=== PATIENT | male | born 1965 | race Caucasian/White ===

== ENCOUNTER 2017-04-02 08:16 | Emergency (ER) | payer MEDICARE, MEDICAID ==
--- NOTE | 2017-04-02 08:22 | UC ---
Back Pain HPI - HPI Summary HPI Summary: Pt presents with complaining of lower back pain R>L. He tells me that he has a history of lower back pain and is s/p lumbar fusion. 3 days ago he was lying down and twisted in a "weird" way - felt an immediate pull in his right lower back. The next day he was walking and slid on a patch of ice and further pulled this area in his lower back. Currently is experiencing pain in right lower back > left. He has no radiation of his pain, no numbness/tingling, no bowel/bladder dysfunction, no dysuria. He denies recent illness, SOB, chest pain , headache, fever, chills, abdominal pain, N/V/D/C. He does have a prescription for a muscle relaxer and percocet at home - he took the muscle relaxer with mild relief, but tells me he has not taken the percocet because he wanted to make sure "nothing was wrong with his back first". - History of Current Complaint Stated Complaint: BACK PAIN Time Seen by Provider: 04/02/17 08:22 Hx Obtained From: Patient Onset/Duration: Gradual Onset Timing: Constant Severity Initially: Moderate Severity Currently: Moderate Pain Intensity: 7 Pain Scale Used: 0-10 Numeric Character: Dull, Aching, Spasmodic, Stiffness Aggravating Factor(s): Movement, Lifting, Bending Alleviating Factor(s): Position - Allergies/Home Medications Allergies/Adverse Reactions: Allergies Allergy/AdvReac Type Severity Reaction Status Date / Time Iodide Allergy Severe Anaphylatic Verified 04/02/17 08:40 Shock Haloperidol [From Haldol] Allergy See Comment Verified 04/02/17 08:40 ENVIRONMENTAL Allergy Intermediate Difficulty Uncoded 04/02/17 08:40 Breathing/Wheezing INDUSTRIAL Allergy Intermediate Difficulty Uncoded 04/02/17 08:40 Breathing Home Medications: Home Medications Amlodipine Besylate [Norvasc 2.5 mg tab] 1 tab PO DAILY 04/02/17 [History Confirmed 04/02/17] Bisoprolol & Hydrochlorothiazi [Ziac 5-6.25 mg-] 1 tab PO DAILY 04/02/17 [ History Confirmed 04/02/17] Hydrochlorothiazide TAB* [Hydrodiuril TAB*] 1 tab PO DAILY 04/02/17 [History Confirmed 04/02/17] Losartan Potassium 1 tab PO DAILY 04/02/17 [History Confirmed 04/02/17] PMH/Surg Hx/FS Hx/Imm Hx - Additional Past Medical History Additional PMH: Chronic LBP hx of spinal fusion Endocrine History: Dyslipidemia Cardiovascular History: Cardiac Disease, Hypertension Psychological History: Anxiety, Depression - Surgical History Surgical History: Yes Surgery Procedure, Year, and Place: APPENDECTOMY. X4 CARDIAC STENTS. POSTERIOR CERVICAL FUSION. L5-S1 LAMINECTOMY - Family History Known Family History: Positive: Cardiac Disease, Hypertension - Social History Alcohol Use: Occasionally Substance Use Type: None Smoking Status (MU): Former Smoker Type: Cigarettes Have You Smoked in the Last Year: No When Did the Patient Quit Smoking/Using Tobacco: 8 years ago - Immunization History Most Recent Influenza Vaccination: never Most Recent Tetanus Shot: unknown Most Recent Pneumonia Vaccination: never Review of Systems Constitutional: Negative Skin: Negative Respiratory: Negative Cardiovascular: Negative Gastrointestinal: Negative Genitourinary: Negative Neurovascular: Negative Musculoskeletal: Decreased ROM - Lower back, Other: - LBP Neurological: Negative Psychological: Negative All Other Systems Reviewed And Are Negative: Yes Physical Exam Triage Information Reviewed: Yes Appearance: Well-Appearing, Well-Nourished, Obese Vital Signs Reviewed: Yes Neck: Positive: Supple, Nontender, No Lymphadenopathy Respiratory: Positive: Chest non-tender, Lungs clear, Normal breath sounds, No respiratory distress, No accessory muscle use Cardiovascular: Positive: RRR, No Murmur, Pulses Normal Abdomen Description: Positive: Nontender, No Organomegaly, Soft. Negative: Bruit, CVA Tenderness (R), CVA Tenderness (L), Distended, Guarding Musculoskeletal: Positive: Strength Intact - b/l LE., No Edema, ROM Limited @ - Spine due to pain with flexion/extension and rotation., Other: - SLR positive B/ L. Celestina positive b/l for lower back pain. TTP over right lumbar paraspinal muscles. FROM and 5/5 strength LEs including dorsiflexion and plantar flexion Neurological: Positive: Alert, Muscle Tone Normal, Other: - L3-S1 sensations intact b/l. Psychological: Positive: Age Appropriate Behavior Skin: Positive: Other - No rashes, lesions, or ecchymosis present. Back Pain Course/Dx - Course Course Of Treatment: Lumbar XR - IMPRESSION: STATUS POST POSTERIOR SPINAL FUSION AND LAMINECTOMY AT THE L5-S1 LEVEL. THERE IS A FRACTURE IN ONE OF THE PEDICLE SCREWS AT THE S1 LEVEL. THERE APPEARS TO BE FUSION OF. THE L5-S1 DISC. THE VERTEBRA ARE IN NORMAL ALIGNMENT. Pt was notified of the above and advised to follow up with his neurosurgeon (Dr. Bernard from [facility]). Instructed to rest, heat, and take his already rx'd muscle relaxers and percocet. - Differential Dx/Diagnosis Differential Diagnosis/HQI/PQRI: Cauda Equina Syndrome, Fracture, Herniated Disc , Renal Colic, Strain, Sprain Provider Diagnoses: Lower back strain. Muscle spasm Discharge - Discharge Plan Condition: Stable Disposition: HOME Patient Education Materials: Muscle Spasm (ED) Referrals: Terence Bowden MD [Primary Care Provider] - Marco Antonio DIEHL,Delvin Anderson [Medical Doctor] - As Soon As Possible Additional Instructions: If you develop a fever, SOB, chest pain, bowel or bladder symptoms, new or worsening symptoms - please call your PCP or go to the ED. Your blood pressure was high at todays visit. Please see your primary provider within 4 weeks for recheck and re-evaluation. --PLEASE CALL YOUR [employer]ON[employer]ATOR AND SCHEDULE A ROUTINE FOLLOW UP 1) Please call Neurosurgery at the number below and schedule a follow up appointment regarding your low back pain and previous surgery. 2) May take your already prescribed muscle relaxers and Percocet that you have at home as needed for pain.
[2017-04-02 08:40] VITALS: BP 147/96
--- NOTE | 2017-04-02 09:28 | RAD ---
INDICATION: Back pain, history of surgery. COMPARISON: Comparison is made with a prior x-ray study of the lumbar spine from June 05, 2003. TECHNIQUE: 5 views of the lumbar spine were obtained including lateral, oblique, AP and a coned-down lateral view of the lumbar sacral junction. FINDINGS: The patient is status post posterior fusion and laminectomy of the lumbar spine at the L5-S1 level with pedicle screws and posterior metallic rods. There is a fracture in one of the pedicle screws at the S1 level. The vertebra are in normal alignment. There appears to be fusion of the L5-S1 disc. There is mild diffuse degenerative disc disease. IMPRESSION: STATUS POST POSTERIOR SPINAL FUSION AND LAMINECTOMY AT THE L5-S1 LEVEL. THERE IS A FRACTURE IN ONE OF THE PEDICLE SCREWS AT THE S1 LEVEL. THERE APPEARS TO BE FUSION OF THE L5-S1 DISC. THE VERTEBRA ARE IN NORMAL ALIGNMENT.
== END 2017-04-02 09:52 | disposition home or self-care (01) ==
LOC: UCEAST 08:16
DX: S39.012A Strain of muscle, fascia and tendon of lower back, initial encounter (principal); X58.XXXA Exposure to other specified factors, initial encounter; Y93.89 Activity, other specified; Y92.9 Unspecified place or not applicable; M62.838 Other muscle spasm; E78.5 Hyperlipidemia, unspecified; I10 Essential (primary) hypertension; F41.9 Anxiety disorder, unspecified; F32.9 Major depressive disorder, single episode, unspecified; I25.10 Atherosclerotic heart disease of native coronary artery without angina pectoris; Z98.61 Coronary angioplasty status; Z87.891 Personal history of nicotine dependence; Z98.1 Arthrodesis status
CPT/HCPCS: 72110; 99212; G0463